=== PATIENT | male | born 1990 | race Caucasian/White ===

== ENCOUNTER 2019-10-26 11:52 | Emergency (ER) | payer OTHER ==
[~2019-10-26] VITALS: Ht 172.7 cm; Wt 70.3 kg
--- NOTE | 2019-10-26 12:41 | NUR ---
PT PRESENTED TO THE ER WITH A C/O LACERATION TO THE RT [place]. 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 PT AMBULATED TO ER12 WITH A STEADY GAIT. LACERATION IS OPEN TO AIR AND DRIED BLOOD NOTED.
--- NOTE | 2019-10-26 12:44 | NUR ---
WOUND CLEANING IN PROGRESS.
[2019-10-26] MEDS ORDERED: LIDOCAINE /MPF 1% VIAL 5 ML VIAL ONE (12:45)
--- NOTE | 2019-10-26 13:35 | NUR ---
PT REC'D GRIPPER SOCKS. PT AMBULATED TO THE BATHROOM WITH A STEADY GAIT.
--- NOTE | 2019-10-26 13:45 | NUR ---
PT RETURNED TO ER 12.
--- NOTE | 2019-10-26 15:03 | NUR ---
Patient discharged to home in stable condition. Written and verbal after care instructions given. Patient verbalizes understanding of instruction. PT AMBULATED OUT WITH A STEADY GAIT. VSS.
[2019-10-26 15:04] VITALS: BP 127/89
== END 2019-10-26 15:05 | disposition home or self-care (01) ==
LOC: ER 11:52
DX: S81.811A Laceration without foreign body, right lower leg, initial encounter (principal); W26.8XXA Contact with other sharp object(s), not elsewhere classified, initial encounter; Y93.89 Activity, other specified; Y92.89 Other specified places as the place of occurrence of the external cause; Y99.8 Other external cause status
CPT/HCPCS: 12004; 99282; J3490

== ENCOUNTER 2019-10-28 08:29 | Emergency (ER) | payer OTHER ==
[~2019-10-28] VITALS: Ht 172.7 cm; Wt 70.3 kg
[2019-10-28 08:32] VITALS: BP 146/87
== END 2019-10-28 08:42 | disposition home or self-care (01) ==
LOC: ER 08:31
DX: S81.811D Laceration without foreign body, right lower leg, subsequent encounter (principal); W22.8XXD Striking against or struck by other objects, subsequent encounter